=== PATIENT | female | born 1965 | race Two or more races ===

== ENCOUNTER 2023-09-08 11:41 | Emergency (ER) | payer OTHER, SELFPAY ==
[2023-09-08 11:44] VITALS: BP 117/77
[2023-09-08 12:05] VITALS: BMI 31.5
--- NOTE | 2023-09-08 13:32 | ED.GENMED ---
History of Present Illness
General
Chief Complaint: Bowel Problem
Source: patient and spouse
Exam Limitations: none
Time Seen by Provider: 09/08/23 12:35
History of Present Illness
History of Present Illness:
57-year-old female who is on Wegovy who presents with constipation. She states she has tried some medication at home. She tried MiraLAX times a dose. She also tried some Dulcolax. Reports just generalized abdominal discomfort. On my exam she
really does not have much pain at all. No vomiting. No fevers. No dysuria. She does have history of irritable bowel syndrome typically has diarrhea.
Past History
Past History
ED Past Medical History: Hypercholesterolemia and Other (Irritable bowel syndrome, GERD)
Phy Exam
Physical Exam
Physical Exam:
CONSTITUTIONAL Patient alert and oriented to person, place and time. Well-appearing. Vital signs reviewed.
HEAD atraumatic, normocephalic.
EYES eyelids normal to inspection, Pupils equally round and reactive to light, Extraocular muscles intact, Conjunctiva normal, Sclera normal.
NECK normal range of motion, Trachea midline, no jugular venous distention.
RESPIRATORY CHEST No respiratory distress noted, Chest expansion equal,
ABDOMEN minimal diffuse tenderness to, Bowel sounds normal. No distention.
BACK normal inspection, no obvious deformities
UPPER EXTREMITY range of motion normal, Motor strength normal, no cyanosis, no edema.
LOWER EXTREMITY range of motion normal, Motor strength normal, no cyanosis, no edema.
NEURO Speech normal, No focal motor deficits, Hill coma scale 15, Memory normal, Cranial Nerves intact to screening exam.
SKIN skin warm, dry, and normal in color.
PSYCHIATRIC patient oriented to person place and time, Normal affect.
Course
Orders/Labs/Results
Orders:
Orders
09/08/23 13:17
Obstruct Series W/PA Chest [CR Obstruct Series W/pa Chest] Urgent
Comment: postmenopausal
Reason For Exam: abdominal pain
09/08/23 15:23
Bisacodyl [Dulcolax] 10 mg RECTAL NOW STA
Magnesium Citrate [Citroma] 300 ml PO ONCE ONE
Vital Signs
Initial and Last Documented VS:
Initial Vital Signs
Temp Pulse Resp BP Pulse Ox
98.3 F 78 18 117/77 98
09/08/23 11:44 09/08/23 11:44 09/08/23 11:44 09/08/23 11:44 09/08/23 11:44
Last Documented Vital Signs
Temp Pulse Resp BP Pulse Ox
98.3 F 70 16 119/85 100
09/08/23 11:44 09/08/23 15:21 09/08/23 15:21 09/08/23 15:21 09/08/23 15:21
MDM/Problems Addressed
MDM/Problems Addressed:
Constipation
*Radiology
Radiology exam reviewed: preliminary read by ED provider (No free air, right colonic stool noted)
*Pulse Oximetry
Patient hypoxic: no
*Critical Care Note
Total Time (30-74mins, 75-104mins- exclusive of procedures): Not Applicable
Data Reviewed
Source: patient
Further Testing Considered But Not Given:
Consider CT but abdomen benign.
Patient Management
Escalation/DeEscalation of care consider admission/obs:
Plan to trial laxatives at home. Appears well. Recommended close PCP follow-up. Further follow-up with GI if symptoms persist
ED Attending Note
-
Portions of this chart may have been created with voice recognition software.� Occasional wrong word or��sound alike� substitutions may have occurred due to the inherent limitations of voice recognition software.
Discharge Plan
Departure
Patient Disposition: Home (Routine Discharge)
Date of Disposition: 09/08/23
Time of Disposition: 15:21
Patient with high blood pressure during this ER visit?: No
Discharge Problem:
Constipation
Instructions: Constipation, Adult (DC)
Prescriptions:
No Action
Wegovy 1 mg/0.5 mL Pen Injector
1 mg SC Q7D
Referrals:
Judith Dubois MD [Family Provider] -
Activity Restrictions/Additional Instructions:
Please drink plenty fluids. Please use MiraLAX twice a day for 5 days. Please see your doctor in the next 3 to 5 days for follow-up and reevaluation. Return immediately for intractable vomiting, fevers, worsening pain or any other concerns
Interventions
Interventions:
*Risk Screen - Suicide Last Done: 09/08/23 11:44
*General Assessment Last Done: 09/08/23 11:44
*Neglect/Abuse Screening Last Done: 09/08/23 11:44
ED- Fall Risk Assessment Last Done: 09/08/23 12:12
*ED COVID-19 Vaccine History Last Done: 09/08/23 12:05
*Nursing Disposition Last Done: 09/08/23 16:02
WJ-Yjjtvv-Hcrvqiqgfo Assessment Last Done: 09/08/23 12:05
Discharge Date and Time
Discharge Date/Time: 09/08/23 16:03
Print Language: MOROCCAN
[2023-09-08 15:19] VITALS: BP 119/85
[2023-09-08 15:21] VITALS: BP 119/85
[2023-09-08] MEDS: CITROMA 300 ML PO (15:58)
[2023-09-08] MEDS: DULCOLAX 10 MG RECTAL (15:59)
== END 2023-09-08 16:03 | disposition home or self-care (01) ==
LOC: EMR 11:41
PROVIDERS: EMERGENCY PHYSICIAN Emergency Medicine; FAMILY PHYSICIAN Family Medicine
DX: K59.00 Constipation, unspecified (principal); R10.84 Generalized abdominal pain; K21.9 Gastro-esophageal reflux disease without esophagitis; E78.00 Pure hypercholesterolemia, unspecified; K58.9 Irritable bowel syndrome, unspecified
CPT/HCPCS: 99283; 74022

== ENCOUNTER → 2023-10-24 17:51 | Outpatient (REF) | payer OTHER, SELFPAY | LOC: WDC 17:51 | PROVIDERS: ATTENDING PHYSICIAN Student in an Organized Health Care Education/Training Program; FAMILY PHYSICIAN Family Medicine | DX: Z12.31 Encounter for screening mammogram for malignant neoplasm of breast (principal) | CPT/HCPCS: 77063; 77067 ==

== ENCOUNTER → 2024-10-24 17:27 | Outpatient (REF) | payer OTHER, SELFPAY | LOC: WDC 17:27 | PROVIDERS: ATTENDING PHYSICIAN Family Medicine | DX: Z12.31 Encounter for screening mammogram for malignant neoplasm of breast (principal) | CPT/HCPCS: 77063; 77067 ==